=== PATIENT | male | born 1990 | race Caucasian/White ===

== ENCOUNTER 2018-07-07 15:59 | Emergency (ER) | payer OTHER ==
--- NOTE | 2018-07-07 20:42 | ED ---
HPI Chest Pain - HPI Summary HPI Summary: This patient is a 28 year old M presenting to [facility] with a chief complaint of intermittent left sided CP since a month ago. The patient rates the pain 1/10 in severity. Symptoms aggravated by sitting still. Symptoms alleviated by moving around. Patient reports pain with breathing, dehydration, congestion, slight cough, and left shoulder pain. Patient denies SOB, sore throat, or LE edema. Pt reports that last night he felt fine, walked to his parents house, and had left sided chest pain. He has had this pain a few times in the last month and decided today that he should get it checked. Pt had a cough two weeks ago. Pt took over the counter medications for the pain earlier this month. PMHX none. SHX works nights, works at [employer]. No PMHx tobacco use. RX none. - History of Current Complaint Chief Complaint: EDChestWallPain Time Seen by Provider: 07/07/18 20:30 Hx Obtained From: Patient Onset/Duration: Started Weeks Ago - 4 Timing: Intermittent Initial Severity: Moderate Current Severity: Moderate Pain Intensity: 3 Pain Scale Used: 0-10 Numeric Chest Pain Location: Discrete at: - left side Chest Pain Radiates: No Aggravating Factor(s): Rest Associated Signs and Symptoms: Positive: Chest Pain, Cough. Negative: Shortness of Breath, Swelling - Allergy/Home Medications Allergies/Adverse Reactions: Allergies Allergy/AdvReac Type Severity Reaction Status Date / Time No Known Allergies Allergy Verified 07/07/18 16:56 PMH/Surg Hx/FS Hx/Imm Hx Previously Healthy: Yes - says he has no PMHX Infectious Disease History: No Infectious Disease History: Denies: Traveled Outside the [place] in Last 30 Days - Family History Known Family History: Positive: None - Social History Occupation: Employed Full-time Review of Systems Positive: Nasal Discharge. Negative: Sore Throat Positive: Chest Pain - left side Positive: Cough, Other - pain with breathing. Negative: Shortness Of Breath Musculoskeletal: Other - left shoulder pain Negative: Edema All Other Systems Reviewed And Are Negative: Yes Physical Exam - Summary Physical Exam Summary: Appearance: Well-appearing, Well-nourished, lying in bed comfortably Skin: Warm, dry, no obvious rash Eyes: sclera anicteric, no conjunctival pallor ENT: mucous membranes moist, pharynx appears normal Neck: Supple, nontender Respiratory: Clear to auscultation, no signs of respiratory distress Cardiovascular: Normal S1, S2. No murmurs. Normal distal pulses in tibial and radial bilaterally. Abdomen: Soft, nontender, normal active bowel sounds present Musculoskeletal: Normal, Strength/ROM Intact Neurological: A&Ox3, awake and alert, mentation is normal, speech is fluent and appropriate Psychiatric: affect is normal, does not appear anxious or depressed Triage Information Reviewed: Yes Vital Signs On Initial Exam: Initial Vitals Temp Pulse Resp BP Pulse Ox 98.0 F 52 18 136/93 100 07/07/18 16:52 07/07/18 16:52 07/07/18 16:52 07/07/18 16:52 07/07/18 16:52 Vital Signs Reviewed: Yes Diagnostics - Vital Signs Vital Signs Temp Pulse Resp BP Pulse Ox 07/07/18 19:58 98.6 F 51 16 135/74 100 07/07/18 17:40 98.3 F 54 18 126/75 100 07/07/18 16:52 98.0 F 52 18 136/93 100 - Laboratory Lab Statement: Any lab studies that have been ordered have been reviewed, and results considered in the medical decision making process. - Radiology CXR Radiology Interpretation Completed By: ED Physician Summary of Radiographic Findings: No acute disease, pending official report. - EKG 16:57 Cardiac Rate: Bradycardia - 51 bpm EKG Rhythm: Sinus Bradycardia Summary of EKG Findings: P waves, QRS complex, and T waves are within normal limits, T waves and intervals are normal, no ischemic changes Chest Pain Course/Dx - Course Course Of Treatment: This patient is a 28 year old M presenting to [facility] with a chief complaint of intermittent left sided CP since a month ago. The patient rates the pain 1/10 in severity. Symptoms aggravated by sitting still. Symptoms alleviated by moving around. Patient reports pain with breathing, dehydration, congestion, slight cough, and left shoulder pain. Patient denies SOB, sore throat, or LE edema. An EKG reveals Sinus bradycardia at 51 BPM, P waves, QRS complex, and T waves are within normal limits, T waves and intervals are normal , no ischemic changes. This is a normal EKG. CXR reveals, per ED physician, no acute disease, pending official radiology report. Patient will be discharged with follow up from the [facility]. The patient is agreeable with this plan. - Diagnoses Provider Diagnoses: Pleurisy Discharge - Sign-Out/Discharge Documenting (check all that apply): Patient Departure - discharge - Discharge Plan Condition: Good Disposition: HOME Patient Education Materials: Pleurisy (ED) Referrals: [facility] [Outside] No Primary Care Phys,NOPCP [Primary Care Provider] - Additional Instructions: This pain typically will last a few weeks before gradually fading away. If it worsens or you get new symptoms with it (shortness of breath, weakness, fever, fainting, etc.) we should see you back here. Otherwise take OTC pain medication as needed. - Billing Disposition and Condition Condition: GOOD Disposition: Home - Attestation Statements Document Initiated by Ovidio: Yes Documenting Scribe: Mario Campo Provider For Whom Ovidio is Documenting (Include Credential): Joshua Talavera MD Scribe Attestation: Mario Stockton scribed for Joshua Talavera MD on 07/07/18 at [id number]. Scribe Documentation Reviewed: Yes Provider Attestation: The documentation as recorded by the Mario espinal accurately reflects the service I personally performed and the decisions made by me, Joshua Talavera MD Status of Scribe Document: Viewed
[2018-07-07 20:44] VITALS: BP 133/85
== END 2018-07-07 20:47 | disposition home or self-care (01) ==
LOC: ED 15:59
DX: R09.1 Pleurisy (principal); R07.9 Chest pain, unspecified; R05 Cough
CPT/HCPCS: 71046; 93005; 99281